=== PATIENT | male | born 1960 | race Caucasian/White ===

== ENCOUNTER 2020-06-02 17:59 | Emergency (ER) | payer OTHER ==
[~2020-06-02 17:59] MED LIST: CATAPRES 0.1MG0.1 MG PO; OMEPRAZOLE20 MG PO; SINGULAIR10 MG PO; ZESTRIL 40 MG T40 MG PO; ZYLOPRIM 300 M300 MG PO
[2020-06-02 19:24] LABS: HEMOGLOBIN 13.2 gm/dl (14.0-17.5); RED BLOOD COUNT 4.42 M/UL (4.20-5.50); WHITE BLOOD COUNT 4.8 K/UL (4.5-11.0)
[2020-06-02 19:43] LABS: BUN/CREATININE RATIO 16 (0-10)
== END 2020-06-03 10:49 | disposition other institution (70) ==
LOC: ER1 17:59
PROVIDERS: Physician Assistant Medical
DX: N13.6 Pyonephrosis (principal); I10 Essential (primary) hypertension; F17.210 Nicotine dependence, cigarettes, uncomplicated; Z87.19 Personal history of other diseases of the digestive system; Z88.0 Allergy status to penicillin; Z88.6 Allergy status to analgesic agent; Z20.822 Contact with and (suspected) exposure to COVID-19
CPT/HCPCS: 36415; 71045; 71250; 80053; 81001; 83605; 84484; 85025; 87077; 87086; 87186; 93005; 96374; 96375; 96376; 99285; J0696; J2270; J2405; Q9967; U0002